=== PATIENT | female | born 1990 | race Caucasian/White ===

== ENCOUNTER 2019-05-25 08:00 | Inpatient (IN) ==
[2019-05-25] MEDS ORDERED: Famotidine 20 MG/2 ML VIAL IVP ONE (08:21)
[2019-05-25] MEDS ORDERED: CeFAZolin Premix DUPLEX 2,000 MG/50 ML BAG IVPB ONE (08:21)
[2019-05-25] MEDS ORDERED: Oxytocin 20 units/ LR 1000 mL 20 UNIT/1,000 ML BAG IVC ONE (08:21)
[2019-05-25] MEDS ORDERED: Metoclopramide 10 MG/2 ML VIAL IVP ONE (08:21)
[2019-05-25] MEDS ORDERED: Azithromycin 500 MG in 0.9 % Sodium Chloride 250 ML IVPB ONE (08:24)
[2019-05-25] MEDS ORDERED: Ringers Solution, Lactated 1,000 ML IVC SCH ×2 (08:30→14:53)
[2019-05-25] MEDS ORDERED: Ringers Solution, Lactated 1,000 ML ONE ×3 (08:45→11:25)
[2019-05-25 08:58] LABS: Basophils % 0.3 %; Eosinophils # 0.1 K/mcL (0.0-0.6); Eosinophils % 1.5 %; Hematocrit 36.4 % (35.3-44.9); Hemoglobin 11.9 g/dL (11.5-15.4); Immature Granulocytes % 0.5 % (0-4); Lymphocytes # 1.3 K/mcL (0.6-4.6); Lymphocytes % 21.6 %; Mean Corpuscular HGB Conc 32.7 g/dL (31.6-35.5); Mean Corpuscular Hemoglobin 27.2 pg (28.0-33.3); Mean Corpuscular Volume 83.3 fL (83.0-100.0); Mean Platelet Volume 12.1 fL (9.4-12.4); Monocytes # 0.4 K/mcL (0.0-1.3); Monocytes % 6.7 %; Neutrophils # 4.2 K/mcL (1.6-8.9); Platelet Count 162 K/mcL (140-400); Red Blood Count 4.37 M/mcL (3.82-4.97); Red Cell Distribution Width 13.5 % (11.5-14.5); Segmented Neutrophils % 69.4 %
[2019-05-25] MEDS ORDERED: *HR* Morphine Sulfate/PF 10 MG/10 ML AMPUL ONE (09:50)
[2019-05-25] MEDS ORDERED: *HR* Phenylephrine 10 MG/ML VIAL ONE (09:50)
[2019-05-25] MEDS ORDERED: *HR* FentaNYL (PF) 100 MCG/2 ML VIAL ONE (09:50)
[2019-05-25] MEDS ORDERED: *HR* Oxytocin 10 UNIT/ML VIAL IM ONE ×2 (09:50→11:25)
[2019-05-25 09:55] LABS: Amphetamine Screen,Urine Negative ng/mL (Cutoff=1000); Barbiturate Screen,Urine Negative ng/mL (Cutoff=200); Benzodiazepines Screen,Urine Negative ng/mL (Cutoff=200); Cannabinoid Screen,Urine Negative ng/mL (Cutoff = 50); Cocaine Screen,Urine Negative ng/mL (Cutoff= 300); Opiate Screen,Urine Negative ng/mL (Cutoff=300); Phencyclidine Screen,Urine Negative ng/mL (Cutoff=25)
[2019-05-25] MEDS ORDERED: Acetaminophen IV 1,000 MG/100 ML INFUS..BTL IVPB ONE (10:07)
[2019-05-25] MEDS ORDERED: *HR* OxyCODONE Immed Rel 5 MG TABLET PO PRN (10:07)
[2019-05-25] MEDS ORDERED: *HR* HYDROmorphone (PF) 1 MG/ML SYRINGE IVP PRN (10:07)
[2019-05-25] MEDS ORDERED: Ondansetron 4 MG/2 ML VIAL IVP ONE (10:07)
[2019-05-25] MEDS ORDERED: EPHEDrine 50 MG/ML VIAL ONE (11:05)
[2019-05-25] MEDS ORDERED: *HR* OxyCODONE/APAP 5/325 TABLET PO PRN (14:07)
[2019-05-25] MEDS ORDERED: *HR* OxyCODONE/APAP 10/325 TABLET PO PRN ×2 (14:07→14:53)
[2019-05-25] MEDS ORDERED: Ibuprofen 800 MG TABLET PO PRN (14:09)
[2019-05-25] MEDS ORDERED: Metoclopramide 10 MG/2 ML VIAL IVP PRN (14:53)
[2019-05-25] MEDS ORDERED: Ondansetron 4 MG/2 ML VIAL IVP PRN (14:53)
[2019-05-25] MEDS ORDERED: Sennosides 8.6 MG TABLET PO PRN (14:53)
[2019-05-25] MEDS ORDERED: Oxytocin 20 units/ LR 1000 mL 20 UNIT/1,000 ML BAG IVC SCH (14:53)
[2019-05-25] MEDS: cephALEXin 500 MG CAPSULE PO SCH ×2 (15:36→20:01)
[2019-05-25] MEDS: *HR* Nalbuphine 10 MG/ML AMPUL IV PRN ×2 (15:36→20:02)
[2019-05-25] MEDS: metroNIDAZOLE 500 MG TABLET PO SCH ×2 (15:37→20:01)
[2019-05-25] MEDS: Ibuprofen 600 MG TABLET PO PRN (22:03)
[2019-05-25] MEDS: *HR* OxyCODONE/APAP 5/325 TABLET PO PRN (23:12)
[2019-05-26] MEDS: Ibuprofen 600 MG TABLET PO PRN ×3 (06:09→19:06)
[2019-05-26] MEDS: *HR* OxyCODONE/APAP 5/325 TABLET PO PRN ×3 (06:09→21:03)
[2019-05-26] MEDS: metroNIDAZOLE 500 MG TABLET PO SCH ×2 (07:37→19:06)
[2019-05-26] MEDS: cephALEXin 500 MG CAPSULE PO SCH ×3 (07:38→21:03)
[2019-05-26] MEDS: Prenatal Vit/FA 1 EACH TABLET PO SCH (07:38)
[2019-05-26] MEDS: Simethicone 80 MG TAB.CHEW PO PRN ×2 (10:37→15:35)
[2019-05-26 10:41] LABS: Basophils % 0.2 %; Eosinophils # 0.1 K/mcL (0.0-0.6); Eosinophils % 1.1 %; Hematocrit 33.4 % (35.3-44.9); Hemoglobin 10.8 g/dL (11.5-15.4); Immature Granulocytes % 0.4 % (0-4); Lymphocytes # 0.9 K/mcL (0.6-4.6); Mean Corpuscular HGB Conc 32.3 g/dL (31.6-35.5); Mean Corpuscular Hemoglobin 27.3 pg (28.0-33.3); Mean Corpuscular Volume 84.3 fL (83.0-100.0); Mean Platelet Volume 11.6 fL (9.4-12.4); Monocytes # 0.3 K/mcL (0.0-1.3); Monocytes % 4.9 %; Neutrophils # 4.1 K/mcL (1.6-8.9); Platelet Count 156 K/mcL (140-400); Red Blood Count 3.96 M/mcL (3.82-4.97); Red Cell Distribution Width 13.6 % (11.5-14.5); Segmented Neutrophils % 77.4 %; White Blood Count 5.3 K/mcL (4.3-11.1)
[2019-05-27] MEDS: metroNIDAZOLE 500 MG TABLET PO SCH ×2 (02:50→09:39)
[2019-05-27] MEDS: Ibuprofen 600 MG TABLET PO PRN ×2 (02:50→10:42)
[2019-05-27 07:34] VITALS: BP 99/67
[2019-05-27] MEDS: Prenatal Vit/FA 1 EACH TABLET PO SCH (07:49)
[2019-05-27] MEDS: cephALEXin 500 MG CAPSULE PO SCH (07:49)
[2019-05-27] MEDS: Simethicone 80 MG TAB.CHEW PO PRN (08:09)
[2019-05-27] MEDS: *HR* OxyCODONE/APAP 5/325 TABLET PO PRN (08:09)
== END 2019-05-27 13:40 | disposition home or self-care (01) | DRG 788 ==
LOC: 1NENULAB 08:19 → 1NENUOBS 13:52
PROVIDERS: ADMIT Obstetrics & Gynecology; ATTEND Obstetrics & Gynecology

== ENCOUNTER 2020-06-08 00:17 | Inpatient (IN) ==
[~2020-06-08 00:17] MED LIST: *HR* Nalbuphine 10 MG/ML AMPUL IV PRN; Azithromycin 500 MG in 0.9 % Sodium Chloride 250 ML IVPB ONE; Famotidine 20 MG/2 ML VIAL IVP PRN; Lidocaine 1% 20 ML MDV INFILT PRN; Metoclopramide 10 MG/2 ML VIAL IVP PRN; Naloxone 0.4 MG/ML INJ IVP PRN; Ondansetron 4 MG/2 ML VIAL IVP PRN
[2020-06-08] MEDS ORDERED: Ringers Solution, Lactated 1,000 ML IVC SCH (00:30)
[2020-06-08 00:43] LABS: Basophils % 0.2 %; Eosinophils % 0.4 %; Hematocrit 36.9 % (35.3-44.9); Hemoglobin 11.8 g/dL (11.5-15.4); Immature Granulocytes % 0.6 % (0-4); Lymphocytes # 1.4 K/mcL (0.6-4.6); Lymphocytes % 13.9 %; Mean Corpuscular Hemoglobin 27.6 pg (28.0-33.3); Mean Corpuscular Volume 86.2 fL (83.0-100.0); Mean Platelet Volume 11.5 fL (9.4-12.4); Monocytes # 0.6 K/mcL (0.0-1.3); Neutrophils # 8.1 K/mcL (1.6-8.9); Platelet Count 207 K/mcL (140-400); Red Blood Count 4.28 M/mcL (3.82-4.97); Red Cell Distribution Width 13.3 % (11.5-14.5); Segmented Neutrophils % 78.9 %; White Blood Count 10.3 K/mcL (4.3-11.1)
[2020-06-08 00:49] LABS: Amphetamine Screen,Urine Negative ng/mL (Cutoff=1000); Barbiturate Screen,Urine Negative ng/mL (Cutoff=200); Benzodiazepines Screen,Urine Negative ng/mL (Cutoff=200); Cannabinoid Screen,Urine Negative ng/mL (Cutoff = 50); Cocaine Screen,Urine Negative ng/mL (Cutoff= 300); Opiate Screen,Urine Negative ng/mL (Cutoff=300); Phencyclidine Screen,Urine Negative ng/mL (Cutoff=25)
[2020-06-08] MEDS ORDERED: EPHEDrine 50 MG/ML VIAL IVP PRN (05:58)
[2020-06-08] MEDS ORDERED: Epidural Premix (fent/bupiv) 110 ML EP SCH (06:00)
[2020-06-08] MEDS ORDERED: Ropivacaine/PF 0.2% 20 ML VIAL ONE (07:21)
[2020-06-08] MEDS ORDERED: Lidocaine -MPF 2% 5 ML VIAL ONE (07:59)
[2020-06-08] MEDS ORDERED: Oxytocin 20 units/ LR 1000 mL 20 UNIT/1,000 ML BAG IVC ONE ×2 (09:29→12:15)
[2020-06-08] MEDS ORDERED: Measles/Mumps/Rubella Vacc 0.5 ML VIAL SQ PRN (12:15)
[2020-06-08] MEDS ORDERED: Acetaminophen 325 MG TABLET PO PRN (12:15)
[2020-06-08] MEDS ORDERED: Rho Immune Globulin 1,500 UNIT SYRINGE IM PRN (12:15)
[2020-06-08] MEDS ORDERED: Benzocaine/Menthol 56 GM AEROSOL SPRAY TP PRN (12:15)
[2020-06-08] MEDS ORDERED: Oxytocin 20 units/ LR 1000 mL 20 UNIT/1,000 ML BAG IVC SCH (12:15)
[2020-06-08] MEDS: Ibuprofen 600 MG TABLET PO PRN ×2 (13:03→19:37)
[2020-06-08] MEDS ORDERED: Lanolin 7 G OINT...G. TP PRN (20:00)
[2020-06-09] MEDS: Ibuprofen 600 MG TABLET PO PRN ×2 (04:29→08:03)
[2020-06-09 05:03] LABS: Basophils % 0.1 %; Eosinophils # 0.1 K/mcL (0.0-0.6); Eosinophils % 0.4 %; Hematocrit 33.6 % (35.3-44.9); Hemoglobin 10.9 g/dL (11.5-15.4); Immature Granulocytes % 0.7 % (0-4); Lymphocytes # 1.5 K/mcL (0.6-4.6); Lymphocytes % 12.2 %; Mean Corpuscular HGB Conc 32.4 g/dL (31.6-35.5); Mean Corpuscular Hemoglobin 28.7 pg (28.0-33.3); Mean Corpuscular Volume 88.4 fL (83.0-100.0); Monocytes # 0.6 K/mcL (0.0-1.3); Monocytes % 4.9 %; Neutrophils # 9.8 K/mcL (1.6-8.9); Platelet Count 192 K/mcL (140-400); Red Cell Distribution Width 13.5 % (11.5-14.5); Segmented Neutrophils % 81.7 %
[2020-06-09 07:36] VITALS: BP 91/63
[2020-06-09] MEDS ORDERED: Prenatal Vit/FA 1 EACH TABLET PO SCH (09:00)
== END 2020-06-09 13:16 | disposition home or self-care (01) | DRG 560 ==
LOC: 1NENULAB → 1NENUOBS 12:14
PROVIDERS: ADMIT Obstetrics & Gynecology; ATTEND Obstetrics & Gynecology